=== PATIENT | female | born 1980 | race African-American/Black ===

== ENCOUNTER 2017-09-13 19:48 | Emergency (ER) | payer MEDICARE ==
[~2017-09-13] VITALS: Ht 167.6 cm; Wt 82.1 kg
[~2017-09-13 19:48] MED LIST: ALDOMET250 MG PO; CATAPRES0.1 MG PO; CRESTOR20 MG PO; ELAVIL25 MG PO; FOLATE0.4 MG PO; IBUPROFEN600 MG PO; LOPRESSOR50 MG PO; NORCO 10/325 TA1 TA1 PO; PERCOCET 5-3251 TAB PO; PHENERGAN25 M1 PO; PRENATAL COMPLE1 TAB PO; PRILOSEC20 MG PO; TOPAMAX25 MG PO; VANSPAR7.5 MG PO; VITAMIN D31000 UNIT PO
[2017-09-13 20:03] VITALS: Ht 167.6 cm; Wt 82.1 kg
[2017-09-13] MEDS ORDERED: DEPO-PROVER150 MG/ML IM (20:05)
[2017-09-13] MEDS ORDERED: TOPROL XL50 MG PO (20:05)
[2017-09-13] MEDS ORDERED: AMBIEN10 MG PO (20:05)
[2017-09-13] MEDS ORDERED: ZANAFLEX2 M1 PO (20:06)
[2017-09-13] MEDS ORDERED: BUTALB-APAP-CA1 EACH PO (20:06)
[2017-09-13] MEDS ORDERED: EPITOL200 MG PO (20:07)
[2017-09-13] MEDS ORDERED: PHENADOZ25 MG/SUPP RC (20:07)
[2017-09-13] MEDS ORDERED: KLONOPIN1 MG PO (20:08)
[2017-09-13] MEDS ORDERED: VIIBRYD20 MG PO (20:08)
[2017-09-13] MEDS ORDERED: ZANTAC150 MG PO (20:08)
[2017-09-13] MEDS ORDERED: D 3 (20:09)
[2017-09-13] MEDS ORDERED: POTASSIUM CHLO20 MEQ (20:09)
[2017-09-13] MEDS ORDERED: IBUPROFEN800 MG PO (20:11)
[2017-09-13 20:54] LABS: COLOR YELLOW (YELLOW); HCG URINE NEGATIVE (NEGATIVE)
[2017-09-13 20:55] LABS: APPEARANCE CLEAR (CLEAR); BILIRUBIN NEGATIVE (NEGATIVE); GLUCOSE NEGATIVE (NEGATIVE); KETONE NEGATIVE (NEGATIVE); NITRITE NEGATIVE (NEGATIVE); PROTEIN NEGATIVE (NEGATIVE); SPECIFIC GRAVITY 1.025 (1.005-1.020); UROBILINOGEN NORMAL (NORMAL)
[2017-09-13 21:45] VITALS: BP 156/90
== END 2017-09-13 21:47 | disposition home or self-care (01) ==
LOC: D.ER 19:48
PROVIDERS: Emergency Medicine
DX: R51 Headache (principal); I10 Essential (primary) hypertension

== ENCOUNTER 2017-12-01 18:04 | Emergency (ER) | payer MEDICARE ==
[~2017-12-01] VITALS: Ht 167.6 cm; Wt 81.8 kg
[~2017-12-01 18:04] MED LIST changes: +AMBIEN10 MG PO; +BUTALB-APAP-CA1 EACH PO; +D 3; +DEPO-PROVER150 MG/ML IM; +EPITOL200 MG PO; +IBUPROFEN800 MG PO; +KLONOPIN1 MG PO; +PHENADOZ25 MG/SUPP RC; +POTASSIUM CHLO20 MEQ; +TOPROL XL50 MG PO; +VIIBRYD20 MG PO; +ZANAFLEX2 M1 PO; +ZANTAC150 MG PO
[2017-12-01 18:36] VITALS: BP 151/95; Ht 167.6 cm; Wt 81.8 kg
== END 2017-12-01 20:13 | disposition home or self-care (01) ==
LOC: D.ER 18:04
DX: T85.9XXA Unspecified complication of internal prosthetic device, implant and graft, initial encounter (principal)

== ENCOUNTER 2019-09-20 19:48 | Emergency (ER) | payer MEDICARE ==
[~2019-09-20] VITALS: Ht 167.6 cm; Wt 86.4 kg
[2019-09-20 20:14] VITALS: Ht 167.6 cm; Wt 86.4 kg
[2019-09-20] MEDS ORDERED: VALTREX500 MG PO (20:20)
[2019-09-20] MEDS ORDERED: PAXIL20 MG PO (20:21)
[2019-09-20] MEDS ORDERED: ALDACTONE50 MG PO (20:23)
[2019-09-20] MEDS ORDERED: PROTONIX20 MG PO (20:24)
[2019-09-20] MEDS ORDERED: BUPROPION HCL100 M1 PO (20:24)
[2019-09-20 20:55] LABS: BASOPHILS 0.6 % (0-2); EOSINOPHILS 2.5 % (0-7); LYMPHOCYTES 49.6 % (15-50); MCH 30.3 pg (26.0-34.0); MCHC 32.5 g/dL (31.0-37.0); MCV 93.2 fL (80.0-100.0); MEAN PLATELET VOLUME 10.2 fL (7.4-10.4); MONOCYTES 10.2 % (2-11); NEUTROPHILS 37.1 % (40-80); RBC 4.29 10x6/uL (4.00-5.40); RDW 13.2 % (11.5-14.5); WBC 5.1 10x3/uL (4.8-10.8)
[2019-09-20 21:10] LABS: CALCIUM 8.3 mg/dL (8.5-10.1); CARBON DIOXIDE 29.8 mmol/L (21.0-32.0); CREATININE - SERUM 1.1 mg/dL (0.6-1.3); POTASSIUM - SERUM 3.8 mmol/L (3.5-5.1)
[2019-09-20 21:15] LABS: PLATELET COUNT 207 10x3/uL (130-400)
[2019-09-20 21:15] LABS: BILIRUBIN NEGATIVE (NEGATIVE); GLUCOSE NEGATIVE (NEGATIVE); KETONE NEGATIVE (NEGATIVE); NITRITE NEGATIVE (NEGATIVE); SPECIFIC GRAVITY 1.025 (1.005-1.020)
[2019-09-20 21:16] LABS: HCG URINE NEGATIVE (NEGATIVE)
[2019-09-20 21:16] LABS: ALBUMIN 4.1 g/dL (3.4-5.0); BILIRUBIN - TOTAL 0.51 mg/dL (0.2-1.3); PROTEIN - SERUM 7.5 g/dL (6.4-8.2)
[2019-09-20] MEDS ORDERED: DICLOFENAC SODI50 MG PO (22:23)
[2019-09-20 23:45] VITALS: BP 138/78
== END 2019-09-20 23:10 | disposition home or self-care (01) ==
LOC: D.ER 19:48
PROVIDERS: Family Medicine
DX: R10.2 Pelvic and perineal pain (principal); I10 Essential (primary) hypertension